=== PATIENT | male | born 1950 | race African-American/Black ===

== ENCOUNTER 2016-05-14 22:17 | Inpatient (IN) | payer BC ==
[~2016-05-14] VITALS: Ht 182.9 cm; Wt 102.0 kg
[2016-05-14] MEDS ORDERED: SODIUM CHLORIDE 0.9% 1L BAG IV* STA (22:48)
[2016-05-14] MEDS ORDERED: CEFTRIAXONE 1 GM/50 ML (PMX) 50 ML IVPB ONE (23:00)
[2016-05-14] MEDS ORDERED: IBUPROFEN 600 MG TAB PO ONE (23:00)
[2016-05-14] MEDS ORDERED: LISI10TA2 PO (23:07)
[2016-05-14] MEDS ORDERED: ALLO300T2 PO (23:07)
[2016-05-14] MEDS ORDERED: AMLO-147 PO (23:08)
[2016-05-14 23:12] LABS: ADD SCAN DIFF NO
[2016-05-14 23:15] LABS: BASOPHILS % 0.1 % (0.0-2.0); EOSINOPHILS # 0.1 10^3/ul (0.0-0.5); EOSINOPHILS % 0.6 % (0.0-7.0); HEMATOCRIT 39.5 % (42.0-52.0); HEMOGLOBIN 13.3 g/dl (14.0-18.0); LYMPHOCYTES # 1.3 10^3/ul (0.8-2.9); LYMPHOCYTES % 13.6 % (15.0-51.0); MEAN CORPUSCULAR HEMOGLOBIN 29.1 pg (29.0-33.0); MEAN CORPUSCULAR HGB CONC 33.7 g/dl (32.0-37.0); MEAN CORPUSCULAR VOLUME 86.4 fl (82.0-101.0); MONOCYTE # 0.7 10^3/ul (0.3-0.9); MONOCYTES % 7.2 % (0.0-11.0); NEUTROPHIL # 7.2 10^3/ul (1.6-7.5); NEUTROPHILS % 78.1 % (39.0-77.0); PLATELET COUNT 192 10^3/UL (140-415); RED BLOOD COUNT 4.57 10^6/ul (4.70-6.10); RED CELL DISTRIBUTION WIDTH 13.5 % (11.5-14.5); WHITE BLOOD COUNT 9.3 10^3/ul (4.8-10.8)
[2016-05-14 23:24] LABS: INR 1.02; PROTIME 13.4 Sec (12.2-14.2)
[2016-05-14 23:25] LABS: PARTIAL THROMBOPLASTIN TIME 26.9 Sec (25.0-35.0)
[2016-05-14 23:33] LABS: ALBUMIN 4.1 g/dl (3.3-4.9)
[2016-05-14 23:34] LABS: CHLORIDE 100 mmol/L (97-110); POTASSIUM 3.4 mmol/L (3.5-5.1); SODIUM 135 mmol/L (135-144)
[2016-05-14 23:36] LABS: ALBUMIN/GLOBULIN RATIO 0.91; ALKALINE PHOSPHATASE 147 IU/L (42-121); ANION GAP 16 (8-16); ASPARTATE AMINO TRANSFERASE 18 IU/L (15-46); BILIRUBIN,INDIRECT 0.3 mg/dl (0-1.1); BILIRUBIN,TOTAL 0.3 mg/dl (0.2-1.3); BLOOD UREA NITROGEN 20 mg/dl (7-20); CARBON DIOXIDE 22 mmol/L (21-31); CREATININE 1.63 mg/dl (0.61-1.24); TOTAL PROTEIN 8.6 g/dl (6.1-8.1)
[2016-05-14 23:37] LABS: ALANINE AMINOTRANSFERASE 24 IU/L (13-69); CALCIUM 9.5 mg/dl (8.4-10.2); GLUCOSE 322 mg/dl (70-220)
--- NOTE | 2016-05-14 23:42 | RADRPT ---
PROCEDURE: XR Chest. CLINICAL INDICATION: Possible sepsis. TECHNIQUE: Single frontal view of the chest was obtained COMPARISON: None FINDINGS: Cardiomegaly. Tortuous thoracic aorta. Hypoinflated lungs and portable technique accentuates pulmo nary vascular markings. Mild atelectasis versus airspace disease at the left lung base. There is no pleural effusion or pneumothorax. IMPRESSION: Mild atelectasis versus airspace disease at left lung base, and this may represent a small pneumonia in setting of possible sepsis. RPTAT: UU Physician Ronald Date Time Electronically viewed and signed by Physician Ronald on 05/14/2016 23:42 RS/
[2016-05-14 23:45] LABS: TROPONIN-I < 0.012 ng/ml (0.00-0.12)
[2016-05-15] VITALS (11 sets, daily range): BP systolic 124–162; BP diastolic 65–91; PULSE 93–114; RESP 18–20; TEMP 97.6; Ht 182.9 cm; Wt 102.0 kg
[2016-05-15 00:56] LABS: ADD UMIC YES; URINE BILIRUBIN (Dip) NEGATIVE (NEGATIVE); URINE BLOOD (Dip) 2+ (NEGATIVE); URINE COLOR LT. YELLOW (YELLOW); URINE GLUCOSE (Dip) >=1000 % (NEGATIVE); URINE KETONES (Dip) TRACE (NEGATIVE); URINE LEUKOCYTE ESTERASE (Dip) TRACE (NEGATIVE); URINE NITRITE (Dip) NEGATIVE (NEGATIVE); URINE TOTAL PROTEIN (Dip) TRACE (NEGATIVE); URINE UROBILINOGEN (Dip) 0.2 E.U./dL (0.1-1.0)
--- NOTE | 2016-05-15 00:59 | ERA ---
ER Documentation Chief Complaint Date/Time DATE: 05/15/16 TIME: 00:55 Chief Complaint syncope x 1minute in the bathroom and fell down1 hour ago HPI 66-year-old man brought in by for syncopal episode while in the bathroom taking a shower, episode was witnessed by , there was no seizure activity. Patient denies head or neck injury, denies chest pain or shortness of breath but states he has had a mild cough recently, no abdominal pain, no vomiting or diarrhea. Patient denies nasal congestion, rhinorrhea, or sore throat. Patient denies dysuria. ROS All systems reviewed and are negative except as per history of present illness. Medications Home Meds Reported Medications Amlodipine Besylate* (Amlodipine Besylate*) 10 Mg Tablet, 10 MG PO DAILY, #30 TAB 05/14/16 Allopurinol* (Allopurinol*) 300 Mg Tablet, 300 MG PO DAILY, TAB 05/14/16 Lisinopril* (Lisinopril*) 10 Mg Tablet, 10 MG PO DAILY, #30 TAB 05/14/16 Allergies Allergies: Coded Allergies: No Known Allergy (Unverified , 05/14/16) PMhx/Soc Hypertension Hx Alcohol Use: No Hx Substance Use: No Hx Tobacco Use: No Smoking Status: Never smoker FmHx Family History: No diabetes Physical Exam Vitals Vital Signs Date Time Temp Pulse Resp B/P Pulse Ox O2 Delivery O2 Flow Rate FiO2 05/15/16 00:13 99.0 101 18 146/89 100 Room Air 05/14/16 23:00 99.5 119 20 152/87 98 Room Air 05/14/16 22:20 101.8 120 182 98/100 100 Physical Exam GENERAL: Well-developed, well-nourished, febrile HEENT: Moist mucous membranes, pink conjunctiva, no cervical spine tenderness or step-off deformities, no goiter, no jaundice or icterus, extraocular movements intact without pain. No submandibular induration, and no pharyngeal erythema NEURO: Alert and oriented 3, cranial nerves II through XII intact bilaterally, pupils equal round reactive to light, no focal deficits or facial asymmetry, sensation intact distally Strength 5/5 in upper and lower extremities bilaterally CARDIAC: Tachycardic and regular, no murmurs rubs or gallops LUNGS: Clear bilaterally no wheezing crackles or stridor ABDOMEN: Soft nontender, no guarding, no rigidity, no rebound, no psoas sign no obturator sign. Normoactive bowel sounds SKIN: Warm and dry to touch, no abrasions, contusions, or hematomas, no lacerations, no ecchymosis, no target lesions, and without ulcers EXTREMITIES: No clubbing cyanosis or edema, calves are bilaterally symmetrical, no Homans sign, no popliteal cord sign. Distal pulses equal and bilateral PSYCH: Normal affect without agitation or irritability Result Diagram: 05/14/16224905/14/162249 Results 24 hrs Laboratory Tests Test 05/14/16 22:50 White Blood Count 9.310^3/ul Red Blood Count 4.5710^6/ul Hemoglobin 13.3g/dl Hematocrit 39.5% Mean Corpuscular Volume 86.4fl Mean Corpuscular Hemoglobin 29.1pg Mean Corpuscular Hemoglobin Concent 33.7g/dl Red Cell Distribution Width 13.5% Platelet Count 89891^3/UL Mean Platelet Volume 10.0fl Neutrophils % 78.1% Lymphocytes % 13.6% Monocytes % 7.2% Eosinophils % 0.6% Basophils % 0.1% Nucleated Red Blood Cells % 0.0/100WBC Neutrophils # 7.210^3/ul Lymphocytes # 1.310^3/ul Monocytes # 0.710^3/ul Eosinophils # 0.110^3/ul Basophils # 0.010^3/ul Nucleated Red Blood Cells # 0.010^3/ul Prothrombin Time 13.4Sec Prothrombin Time Ratio 1.0 INR International Normalized Ratio 1.02 Activated Partial Thromboplast Time 26.9Sec Sodium Level 135mmol/L Potassium Level 3.4mmol/L Chloride Level 100mmol/L Carbon Dioxide Level 22mmol/L Anion Gap 16 Blood Urea Nitrogen 20mg/dl Creatinine 1.63mg/dl Glucose Level 322mg/dl Lactic Acid Level 1.3mmol/L Calcium Level 9.5mg/dl Total Bilirubin 0.3mg/dl Direct Bilirubin 0.00mg/dl Indirect Bilirubin 0.3mg/dl Aspartate Amino Transf (AST/SGOT) 18IU/L Alanine Aminotransferase (ALT/SGPT) 24IU/L Alkaline Phosphatase 147IU/L Troponin I < 0.012ng/ml Total Protein 8.6g/dl Albumin 4.1g/dl Globulin 4.50g/dl Albumin/Globulin Ratio 0.91 Lipase 96U/L Current Medications Medications (Trade) Dose Ordered Sig/Sri Route PRN Reason Start Time Stop Time Status Last Admin Dose Admin Sodium Chloride (NS) 3,000 ml BOLUS OVER 2 HOURS STAT IV* 05/14/16 22:48 05/14/16 22:50 DC 05/14/16 23:06 Ibuprofen 600 mg 600 mg ONCE ONCE PO 05/14/16 23:00 05/14/16 23:01 DC 05/14/16 23:05 Ceftriaxone Sodium (Rocephin) 50 ml @ 100 mls/hr ONCE ONCE IVPB 05/14/16 23:00 05/14/16 23:29 DC 05/14/16 23:05 Procedures/MDM IV line was established patient was placed on butt welder rhythm strip revealed a sinus tachycardia at 120 bpm with upright P and T waves. Patient was febrile. Blood and urine cultures ordered results are pending I will follow -up. I administered about 3 L normal saline intravenously and ibuprofen 600 mg p.o. for fever. Patient was given ceftriaxone 1 g IV 1. EKG performed, read by me revealed a sinus tachycardia 117 bpm, left axis deviation, narrow QRS,, no concerning ST elevations or depressions noted. One view chest x-ray performed, read by me there is a left lower lobe infiltrate , no pneumothorax, no air under the diaphragm. CBC was unremarkable, electrolytes revealed hypokalemia 3.4 and dehydration with a BUN/creatinine of 20/1.6, blood sugar elevated at 322, liver function tests are normal, troponin was negative. Lactic acid was low at 1.3 no need to repeat. I also treated with azithromycin 500 mg IV 1. Patient will be admitted to telemetry setting for syncope and pneumonia. Departure Diagnosis: Primary Impression: Syncope Qualified Code: R55 - Syncope, unspecified syncope type Additional Impressions: Pneumonia Qualified Code: J18.1 - Pneumonia of left lower lobe due to infectious organism Dehydration Hypokalemia Condition: ALTHEA Leal MD May 15, 2016 00:59
[2016-05-15] MEDS ORDERED: AZITHROMYCIN 500MG/NS (PMX) 250 ML IVPB ONE (01:00)
[2016-05-15 01:17] LABS: BACTERIA,URINE MANY; MUCUS,URINE MODERATE
[2016-05-15] MEDS ORDERED: ACETAMINOPHEN 325 MG TAB PO PRN (07:00)
[2016-05-15] MEDS ORDERED: ONDANSETRON 4 MG INJ IV PRN (07:00)
[2016-05-15] MEDS: LEVOFLOXACIN 500MG/D5W (PMX) 100 ML IVPB SCH (08:42)
[2016-05-15] MEDS: ALLOPURINOL 300 MG TAB PO SCH (08:42)
[2016-05-15 08:43] LABS: CHOL/HDL RATIO 3.3 RATIO
[2016-05-15] MEDS: AMLODIPINE 10 MG TAB PO SCH (08:46)
[2016-05-15] MEDS: HEPARIN 5,000 UNIT/0.5 ML SYG SC SCH ×2 (08:55→21:16)
[2016-05-15] MEDS ORDERED: LISINOPRIL 10 MG TAB PO SCH (09:00)
[2016-05-15 09:12] LABS: THYROID STIMULATING HORMONE 1.04 MIU/L (0.465-4.680)
--- NOTE | 2016-05-15 11:37 | HP ---
Date/Time of Note Date/Time of Note DATE: 05/15/16 TIME: 11:29 Assessment/Plan VTE Prophylaxis VTE Prophylaxis Intervention: heparin Lines/Catheters IV Catheter Type (from Nrs): Saline Lock Assessment/Plan Assessment/Plan 1. Syncope: likely vasovegal - Cont tele monitoring - Obtain 2D-echo, trend trop - Will also order CT head and carotid doppler u/s 2. Sepsis 2/2 PNA - abx - f/u culture results 3. Presumed GAY - Will hydrate for now - Renal u/s and nephrology consult as needed - will holf ACEI if no improvement in am 4. Hyperglycemia - likely undiagnosed diabetes - will check A1c - insulin while in hospital 5. HTN Cont med with adjustment as needed 6. Hx of Gout - cont allopurinol HPI/ROS Admit Date/Time Admit Date/Time May 15, 2016 at 00:35 Hx of Present Illness Patient is a 6 yo male with hx of HTN and gout presented to ER after experiencing loss of consciousness that occurred while in shower. pt fell onto shower chair in shower, but denies hitting head. Per triage note, per family pt "looked like he was . His eyes were rolled back into his head." pt was a&o x4 in ER and walking with steady gait. He denied chest pain, palpitations, SOB or headache prior to syncopal episode. He did however c/o cough over last few days In ER, no arrythmia, first trop neg. No head CT was done. Initial Vital shows fever with a temp of 101.8 with HR of 120. . PMH/Family/Social Social History Smoking Status: Never smoker Exam/Review of Systems Vital Signs Vitals Vital Signs Date Time Temp Pulse Resp B/P Pulse Ox O2 Delivery O2 Flow Rate FiO2 05/15/16 08:07 97 05/15/16 07:55 98.2 18 124/65 97 05/15/16 06:00 Room Air Exam Constitutional: alert, oriented, well developed Head: atraumatic, normocephalic Eyes: EOMI, PERRL Respiratory: clear to auscultation, normal air movement Cardiovascular: nl pulses, regular rate and rhythm Gastrointestinal: non-tender, soft Extremities: normal pulses Neurological: nl mental status, nl speech, nl strength Labs Result Diagram: 4/1/17 2250 4/1/17 2250 Medications Medications Current Medications Levofloxacin/ Dextrose (Levaquin 500mg/ D5W 100 ml (Pmx)) 100 ml @ 100 mls/hr Q24H IVPB Last administered on 05/15/16 08:42; Admin Dose 100 MLS/HR; Start 05/15/16 at 07:00 Lisinopril (Zestril) 10 mg DAILY PO Last administered on 05/15/16 08:43; Admin Dose 10 MG; Start 05/15/16 at 09:00 Allopurinol (Zyloprim) 300 mg DAILY PO Last administered on 05/15/16 08:42; Admin Dose 300 MG; Start 05/15/16 at 09:00 Amlodipine Besylate (Norvasc) 10 mg DAILY PO Last administered on 05/15/16 08: 46; Admin Dose 10 MG; Start 05/15/16 at 09:00 Acetaminophen (Tylenol Tab) 650 mg Q6H PRN PO PAIN AND OR ELEVATED TEMP; Start 05/15/16 at 07:00 Ondansetron HCl (Zofran Inj) 4 mg Q6H PRN IV NAUSEA AND/OR VOMITING; Start 05/15 at 07:00 Heparin Sodium (Porcine) (Heparin (5000 Units/0.5 ml)) 5,000 unit BID SC Last administered on 05/15/16 08:55; Admin Dose 5,000 UNIT; Start 05/15/16 at 09:00 TRAN CERON MD May 15, 2016 11:37
[2016-05-15] MEDS ORDERED: GLUCOSE GEL 15 GRAM TUBE PO PRN ×2 (15:00)
[2016-05-15] MEDS ORDERED: DEXTROSE 50% 50 ML SYRINGE IV PRN ×2 (15:00)
[2016-05-15] MEDS ORDERED: GLUCOSE GEL 15 GRAM TUBE BUCCAL PRN (15:00)
[2016-05-15] MEDS ORDERED: GLUCAGON 1 MG INJ IM PRN (15:00)
[2016-05-15 17:21] LABS: ADD UMIC NO; URINE BILIRUBIN (Dip) NEGATIVE (NEGATIVE); URINE BLOOD (Dip) NEGATIVE (NEGATIVE); URINE COLOR LT. YELLOW (YELLOW); URINE GLUCOSE (Dip) >=1000 % (NEGATIVE); URINE KETONES (Dip) NEGATIVE (NEGATIVE); URINE LEUKOCYTE ESTERASE (Dip) NEGATIVE (NEGATIVE); URINE NITRITE (Dip) NEGATIVE (NEGATIVE); URINE TOTAL PROTEIN (Dip) NEGATIVE (NEGATIVE); URINE UROBILINOGEN (Dip) 0.2 E.U./dL (0.1-1.0)
[2016-05-15 17:58] LABS: PROTEIN URINE 10.8 mg/dl (0.0-9.9)
--- NOTE | 2016-05-15 18:04 | CONS ---
DATE OF ADMISSION: 05/15/2016 DATE OF CONSULTATION: 05/15/2016 TYPE OF CONSULTATION: Nephrology. REASON FOR CONSULTATION: Acute kidney injury, electrolyte abnormality. PHYSICIAN REQUESTING CONSULT: Dr. Dixon. HISTORY OF PRESENT ILLNESS: This is a 66-year-old male with a past medical history of hypertension, history of gout, history of diabetes who presents to [facility] after having a sy ncopal episode. The patient apparently this morning had experienced loss of consciousness while in the shower. The patient's family called 911 and EMS service brought patient to the emergency room. Upon arrival, the patient had a fever of 101.8. The patient denied hitting his head. In the emerg ency room, chest x-ray was obtained which showed atelectasis versus airspace disease in the left melisa g base. In the emergency room, the patient was given IV fluids, started on empiric antibiotics and admitted to telemetry for further evaluation. In terms of the patient's renal history, the patient denies any prior history of kidney disease. On admission, the patient had a creatinine of 1.63 mg/dL. The patient denied any episodes of hemoptys is, hematemesis, any rashes, any frothy urine, any hematochezia. PAST MEDICAL HISTORY: As stated above, history of hypertension, history of gout. PAST SURGICAL HISTORY: None. ALLERGIES: NO KNOWN DRUG ALLERGIES. FAMILY HISTORY: Noncontributory. SOCIAL HISTORY: Does not drink, smoke or do drugs. MEDICATIONS: The patient's medications have been reviewed. REVIEW OF SYSTEMS: A 14-point review of systems was conducted. Pertinent positives stated in HPI, otherwise negative. PHYSICAL EXAMINATION: VITAL SIGNS: Blood pressures 162/91, pulse 108, respiration is 18, temperature 98.8. HEENT: Head is normocephalic. Pupils are reactive to light. NECK: Supple. HEART: Regular rate. LUNGS: Show diminished breath sounds at base. ABDOMEN: Soft, nontender to palpation. No rebound or guarding. EXTREMITIES: Negative for clubbing, cyanosis, no edema. DERMATOLOGIC: No rashes. MUSCULOSKELETAL: No joint effusions. NEUROLOGIC: No change in exam. MEDICATIONS: The patient's medications have been reviewed. LABORATORY DATA: Shows a sodium of 135, potassium 2.4, chloride 100, BUN is 20, creatinine 1.60, gl ucose 322. White count 9.3, hemoglobin 13.3, hematocrit 39.5, platelet count 192. The patient's he moglobin A1c is 12.8. Urinalysis shows WBC clumps and RBCs 5 to 10, greater than 1000 glucose. ASSESSMENT AND PLAN: This is a 66-year-old male who presents with: 1. Nonoliguric acute kidney injury with unknown baseline creatinine. Etiology of current acute kid josie injury is unclear, possibly hemodynamic versus MARGARET inhibitor effect versus questionable AIN. Th e patient's urinalysis does show WBC clumps, questionable casts, which can be seen in interstitial n ephritis. Underlying etiology is not clear. Plan at this point is to check urine eosinophils, will repeat urinalysis. Will check urine electrolytes. We will check renal ultrasound to evaluate shavon l parenchyma. Would continue current treatment plan. Continue IV hydration. Continue supportive c are, renally dose meds will hold MARGARET inhibitor in the setting of acute kidney injury. Monitor renal function closely. 2. Hypokalemia, replete potassium chloride. 3. Mineral bone disorder. Monitor calcium, phosphorus levels. No need for phosphate binders. 4. Hypertension. Continue current blood pressure regimen. Will hold MARGARET inhibitor. 5. Syncope. Etiology is possibly vasovagal, continue to monitor. Workup ongoing, check 2D echo, c arotid duplex ultrasound. 6. Sepsis secondary to pneumonia. Questionable possible urinary tract infection. Continue current antibiotic regimen. 7. History of gout. Patient will continue allopurinol. Thank you, Dr. Cuevas, for this interesting consultation. It will be a pleasure to follow patient juan pablo delacruz christian throughout the hospital course. Dictated By: GARY KERNS/CHRISTIE Conf#: [id number] DID#: [id number]
[2016-05-15] MEDS ORDERED: INSULIN GLARGINE [LANtus] 3 ML PEN SC SCH (20:00)
[2016-05-15] MEDS ORDERED: LATANOPROST 0.005% 2.5 ML OPH BOTH EYES SCH (21:00)
[2016-05-15] MEDS: INSULIN ASPART [NOVOLOG] 3 ML PEN SC SCH ×2 (21:00→21:16)
[2016-05-15] MEDS: DORZOLAMIDE/TIMOLOL 10 ML OPH BOTH EYES SCH (21:04)
[2016-05-16] VITALS (9 sets, daily range): BP systolic 131–148; BP diastolic 77–97; PULSE 88–117; RESP 18
[2016-05-16] MEDS ORDERED: ACCU-CHEK XX SCH (02:00)
[2016-05-16] MEDS: LEVOFLOXACIN 500MG/D5W (PMX) 100 ML IVPB SCH (06:25)
--- NOTE | 2016-05-16 06:55 | RADRPT ---
PROCEDURE: CT Brain without contrast. CLINICAL INDICATION: syncope TECHNIQUE: CT scan of the brain was performed on a multidetector high-resolution CT scan. Axial im aging was obtained of the brain without contrast administration. Coronal and sagittal reformatted i mages were obtained from the axial source images. Standard CT scan of the head without contrast prot ocols were performed. The total exam CTDI equals 44.03 mGy and the total exam DLP equals 720.03 mGy-cm. One or more of the following dose reduction techniques were used: - Automated exposure control. - Adjustment of the mA and/or kV according to patient size. Use of iterative reconstruction technique. COMPARISON: None. FINDINGS: The ventricular system is normal in size without midline shift. There is symmetrical mild prominenc e of the peripheral frontal CSF spaces consistent with mild symmetrical frontal cerebral volume loss . Negative for intracranial masses hemorrhages or midline shift. There is mild atherosclerotic hear t plaque involving the cavernous internal carotid arteries and distal vertebral arteries. The bones and calvarium are intact. The paranasal sinuses visualized are unremarkable. The mastoids are unr emarkable. That there are numerous punctate normal radiodensities along the right left frontal scal p and superior face that may represent foreign bodies and recommend clinical correlation. IMPRESSION: 1. Bilateral symmetrical frontal volume loss. 2. Negative for intracranial masses hemorrhages or midline shift. RPTAT:AAJJ Physician Michael Date Time Electronically viewed and signed by Physician Michael on 05/16/2016 06:55 BM/
[2016-05-16 07:33] LABS: ADD SCAN DIFF NO
[2016-05-16 07:35] LABS: BASOPHILS % 0.3 % (0.0-2.0); EOSINOPHILS # 0.1 10^3/ul (0.0-0.5); EOSINOPHILS % 0.8 % (0.0-7.0); HEMATOCRIT 41.7 % (42.0-52.0); HEMOGLOBIN 13.3 g/dl (14.0-18.0); LYMPHOCYTES # 1.9 10^3/ul (0.8-2.9); LYMPHOCYTES % 30.1 % (15.0-51.0); MEAN CORPUSCULAR HEMOGLOBIN 28.5 pg (29.0-33.0); MEAN CORPUSCULAR HGB CONC 31.9 g/dl (32.0-37.0); MEAN CORPUSCULAR VOLUME 89.5 fl (82.0-101.0); MEAN PLATELET VOLUME 10.8 fl (7.4-10.4); MONOCYTE # 0.7 10^3/ul (0.3-0.9); NEUTROPHIL # 3.6 10^3/ul (1.6-7.5); NEUTROPHILS % 57.6 % (39.0-77.0); PLATELET COUNT 165 10^3/UL (140-415); RED BLOOD COUNT 4.66 10^6/ul (4.70-6.10); WHITE BLOOD COUNT 6.2 10^3/ul (4.8-10.8)
[2016-05-16 07:50] LABS: POTASSIUM 3.4 mmol/L (3.5-5.1)
[2016-05-16 07:53] LABS: CREATININE 1.31 mg/dl (0.61-1.24)
[2016-05-16 07:54] LABS: CALCIUM 9.1 mg/dl (8.4-10.2)
[2016-05-16] MEDS: INSULIN ASPART [NOVOLOG] 3 ML PEN SC SCH ×6 (08:00→17:22)
[2016-05-16] MEDS: AMLODIPINE 10 MG TAB PO SCH (08:47)
[2016-05-16] MEDS: DORZOLAMIDE/TIMOLOL 10 ML OPH BOTH EYES SCH (08:50)
[2016-05-16] MEDS: HEPARIN 5,000 UNIT/0.5 ML SYG SC SCH (08:53)
[2016-05-16] MEDS: ALLOPURINOL 300 MG TAB PO SCH (08:56)
[2016-05-16] MEDS ORDERED: POTASSIUM CHLORIDE (SR) 20 MEQ TAB PO STA (09:12)
--- NOTE | 2016-05-16 09:37 | RADRPT ---
PROCEDURE: Renal US. CLINICAL INDICATION: Acute kidney injury. TECHNIQUE: Multiple sonographic images of the kidneys and urinary bladder were obtained. The imag es were reviewed on a PACS workstation. COMPARISON: No prior studies are available for comparison. FINDINGS: The right kidney measures 11.6 cm. The left kidney measures 11.8 cm. There is no solid renal mass. There is a benign cyst in the mid right kidney measuring 0.9 cm. There is no hydronephrosis. There is no renal calculus. Renal parenchymal thickness is normal. Both kidneys are hyperechoic consistent with medical renal d isease. The perirenal regions are normal with no fluid collection or mass. The urinary bladder is unremarkable. IMPRESSION: 1. Small benign right renal cyst. 2. Bilateral hyperechoic kidneys consistent with medical renal disease. 3. No hydronephrosis. RPTAT: QQ .Cabrera Camacho MD, Date Time Electronically viewed and signed by .Cabrera Camacho MD, MD on 05/16/2016 09:36 .R/
--- NOTE | 2016-05-16 11:34 | PN ---
DATE: 05/16/2016 SUBJECTIVE: The patient has been stable, no acute events overnight. No fevers, chills, nausea, vom iting. OBJECTIVE: VITAL SIGNS: Blood pressure is 134/78, respirations 18, pulse 104, temperature 98.1. HEENT: Head is normocephalic. NECK: Supple. HEART: Regular rate. LUNGS: Show diminished breath sounds at the base. ABDOMEN: Soft, nontender to palpation without rebound or guarding. EXTREMITIES: Negative for clubbing, cyanosis, no edema. DERMATOLOGIC: No rashes. MUSCULOSKELETAL: No joint effusions. NEUROLOGIC: No change in exam. MEDICATIONS: Reviewed. LABORATORY DATA: Shows a urine protein creatinine ratio approximately 500 mg creatinine. Urine eos inophils 1%. Sodium 140, potassium 3.4, BUN 13, creatinine 1.34. White count 6.2, hemoglobin 13.3, hematocrit 41.7, platelet count 165. ASSESSMENT AND PLAN: 1. Nonoliguric acute kidney injury with unknown baseline creatinine. Etiology of acute kidney inju ry appears to be secondary to hemodynamics, MARGARET inhibitor effect, questionable AIN. The patient's u rinalysis did show WBC clumps, questionable cast which possibly could be seen in interstitial nephri tis and/or urinary infection. The patient's renal function has improved with supportive care. Tootie ent's urine eosinophils were checked and reviewed. At this point, would continue current treatment plan, supportive care, renally dose all medications, continue to hold MARGARET inhibitor, monitor renal f unction closely. 2. Hyperkalemia, will replete potassium chloride. 3. Mineral bone disorder. Continue to monitor calcium and phosphorus levels. No need for phosphat e binders. 4. Hypertension. Continue current blood pressure regimen. 5. Syncope, etiology is likely vasovagal or sepsis. Continue current antibiotic regimen. 6. Sepsis secondary to pneumonia. Continue current antibiotic course. Cultures have been reviewed . 7. History of gout. Continue allopurinol. Dictated By: GARY KERNS/CHRISTIE Conf#: [id number] DID#: [id number]
--- NOTE | 2016-05-16 14:54 | RADRPT ---
Echocardiogram Report Patient Name: ZULEYKA VALDEZ Gender: Male Date: 1950 Study Date: 16-May-2016 Mounter Clarinets: Renae Reynoso [facility] Location: 5551 Ref. Physician: TRAN CERON Quality: Good Procedures: Transthoracic echocardiogram with complete 2D, M-Mode, and doppler examination. Indications: Syncope. 2D/M Mode Doppler Measurement Value Normal Ranges Measurement Value Normal Ranges LVIDd 2D 3.8 3.5 - 5.6 cm AV Peak Endy 1.2 m/sec LVIDs 2D 2.4 2.1 - 4.1 cm AV Peak PG 5.4 mmHg LVPWd 2D 1.1 0.6 - 1.1 cm LVOT Peak Endy 0.9 m/sec IVSd 2D 1.4 0.6 - 1.1 cm LVOT Peak PG 3.3 mmHg AoR Diam 2D 3.2 2.0 - 3.7 cm MV E Peak Endy 0.7 m/sec EDV 2D 60.6 cm3 MV A Peak Endy 1.1 m/sec ESV 2D 14.1 cm3 MV E/A 0.7 LA Dimen 2D 3.0 2.3 - 4.0 cm MV Decel Time 191 msec MV Decel Thomas 4 MV E/A 0.7 Findings Left Ventricle: Normal left ventricular systolic function. Normal left ventricular cavity size. Mild hypertrophy of the basal septum. Ejection fraction is visually estimated at 65 %. Tissue Doppler/Mitral Doppler indices are consistent with impaired relaxation (Stage I diastolic dysfunction). Right Ventricle: Normal right ventricular size. Normal right ventricular systolic function. Left Atrium: The left atrium is normal in size. Right Atrium: The right atrium is normal in size. Mitral Valve: Normal appearance and function of the mitral valve with trace physiologic regurgitation. Aortic Valve: No significant aortic stenosis or insufficiency. Aortic cusps appear mildly calcified. Tricuspid Valve: Normal appearance and function of the tricuspid valve with trace physiologic regurgitation. Normal right ventricular systolic pressure. Pulmonic Valve: Normal pulmonic valve appearance. Pericardium: Normal pericardium with no significant pericardial effusion. Aorta: Normal aortic root. IVC: Dilated IVC with respiratory collapse consistent with elevated right atrial pressure. Conclusions 1.The left ventricle is normal in size and systolic function. 2.Estimated left ventricular ejection fraction of 65-70%. 3.Mild basal septal hypertrophy. Mild left ventricular diastolic dysfunction. Electronically Signed By: Ronal Crawford 16-May-2016 14:53:15 -0700 Patient Name: ZULEYKA VALDEZ Study Date: 16-May-[id number]
--- NOTE | 2016-05-16 16:31 | PDOCDIS ---
Discharge Instructions DIAGNOSIS Discharge Diagnosis: TYPE 2 DIABETES MELLITUS. ACUTE KIDNEY INJURY. CONDITION Patient Condition: Stable HOME CARE INSTRUCTIONS: Special Diet: carbohydrate controlled OTHER ORDERS: Other Orders: 1. Take a controlled diet. 2. Follow-up with your primary care physician in one week. 3. Check blood sugars 3 times a day. 4. Resume activities as tolerated. 5. Resume home medications except lisinopril until your kidney function is normalized. ZOHAIB DRUMMOND NP May 16, 2016 16:31
[2016-05-16] MEDS ORDERED: LEVO750T8 PO (16:34)
[2016-05-16] MEDS ORDERED: LINA5TAB PO (16:34)
[2016-05-16] MEDS ORDERED: LANT3I SC (16:34)
[2016-05-16] MEDS ORDERED: NOVO3I SC (16:34)
[2016-05-16] MEDS ORDERED: INSULIN ASPART [NOVOLOG] 3 ML PEN SC SCH (18:05)
--- NOTE | 2016-05-16 19:01 | DS ---
DATE OF ADMISSION: 05/15/2016 DATE OF DISCHARGE: 05/16/2016 FINAL DIAGNOSES: 1. Acute nonoliguric kidney injury with unknown baseline creatinine. 2. Essential hypertension. 3. Type 2 diabetes mellitus, new onset versus newly diagnosed. 4. Obesity. 5. Sepsis secondary to urinary tract infection. 6. Gout. CONSULTATIONS: Dr. Av Albright, nephrology. HOSPITAL COURSE: This is a 66-year-olf -[place] male with past medical history of essential hypertension and gout. He was brought to the emergency room after the patient had apparent loss of consciousness while he was in the shower. There was no reported injury to the head. There was no witnessed seizures. The patient was awake, alert and oriented x4 in the emergency room. The patient had no problems with gait in the emergency room. He denied any chest pain, palpitations, dyspnea or headache prior to the syncopal episode. However, the patient was having a cough and fever for the past few days. The patient was noticed to have a temperature of 101.8 in the emergency room. Provided the patient's history of present illness and his comorbidities, a clinical decision was made to admit the patient to inpatient setting to have him further evaluated. The patient's workup also showed a creatinine of 1.63 and glucose of 322. The patient was admitted to inpatient telemetry floor. A nephrology consult was obtained. The patient underwent a brain imaging study that did not show any evidence of any acute intracranial findings. The patient had no evidence of any arrhythmias. The patient's 2D echocardiogram showed ejection fraction of 65% to 70% with mild left ventricular diastolic dysfunction. The patient has underlying essential hypertension. The patient was started on antihypertensives. However, the patient's MARGARET inhibitors were put on hold because of worsening renal function. The etiology of the patient's fall was most probably from underlying sepsis versus a hypoglycemic event resulting in hyperglycemic coma but this is very unlikely. The patient was also started on empiric antibiotics for any possible underlying community-acquired pneumonia since the patient's chest x-ray showed mild atelectasis versus airspace disease at the left lung base. The patient's urine culture showed positive gram- negative rods with a colony count greater than 100,000. The patient had no evidence of any septic shock or lactic acidosis. Meanwhile, the patient's renal function was improving gradually with hydration and holding the nephrotoxic medications. The etiology of the patient's acute kidney injury, remains unclear. The acute kidney injury could be probably secondary to hemodynamics versus MARGARET inhibitors. Acute kidney injury could also be from acute interstitial nephritis. The patient has history of gout. The patient was maintained on allopurinol for the same. The patient was noticed to have a very high blood glucose in the emergency room. The patient's hemoglobin A1c was found to be 12.8. The patient denied any prior history of diabetes. However, the patient has a family history of diabetes. Hence, the patient was started on sliding scale insulin and premeal insulin. The patient was also started on dipeptidyl peptidase-4 inhibitors. The patient is not an ideal candidate for metformin because of borderline renal function. A diabetes education consult was obtained. However, the tobacco educator was not available. The patient did not want to wait for the nursing educator. Rather , the patient insisted on going home. 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 Hence, the patient verbalized that he is going to do insulin injections and blood sugar checks. The patient also promised that he will be following up with his primary care physician at the earliest. The patient had a stable hospital course. The patient is stable to be discharged home. The patient was cleared by nephrology to be discharged home. DISCHARGE DISPOSITION/PLAN: Patient will be discharged home today. The patient was instructed to take a carbohydrate controlled diet. He was instructed to resume his home medications, but to avoid Lisinopril until his kidney function is normalized. He was instructed to follow up with his primary care physician in 1 week. He was instructed to check his blood sugars 3 times a day. He was instructed to resume activities as tolerated. The patient verbalized understanding of his discharge instructions. CONDITION AT DISCHARGE: Stable. DISCHARGE MEDICATIONS: 1. NovoLog insulin 4 units subcutaneously with meals. 2. Lantus insulin 12 units subcutaneously daily. 3. Levaquin 750 mg p.o. q.48h. x5 tablet. 4. Tradjenta 5 mg p.o. daily. 5. Allopurinol 300 mg p.o. b.i.d. 6. Amlodipine 10 mg p.o. daily. The patient was also given prescription for glucometer including supplies for glucometer. PERTINENT LABORATORY AND DIAGNOSTIC DATA: 1. 2D echocardiogram. The left ventricle was normal in size and systolic function. Estimated left ventricular ejection fraction of 65% to 70%. Mild basal septal hypertrophy. Mild left ventricular diastolic dysfunction. 2. Chest x-ray upon admission. Mild atelectasis versus airspace disease at the left lung base and this may represent a small pneumonia in the setting of possible sepsis. 3. Brain CT scan. Mild bilateral symmetrical frontal volume loss. Negative for intracranial masses, hemorrhages or midline shift. 4. Renal ultrasound. Small benign right renal cyst. Bilateral hyperechoic kidneys consistent with medical renal disease. No hydronephrosis. 5. Latest CBC: WBC 6.2, hemoglobin 13.3, hematocrit 41.7, platelet count 155. 6. Latest BMP: Sodium 140, potassium 3.4, chloride 103, carbon dioxide 20, anion gap 17, BUN 13, creatinine 1.2, glucose 241, calcium 9.13. 7. Blood culture x2. Negative. 8. Urine culture. Positive for gram-negative rods. At this time, I would like to thank Dr. Albright for seeing the patient and providing clinical recommendations. The case and management of this patient was fully discussed with Dr. Tripp. Approximately 40 minutes was spent on coordinating discharge on this patient. ZOHAIB TRIPP MD, AM/CHRISTIE Conf#: [id number] DID#: [id number]
[2016-05-16] MEDS ORDERED: INSULIN GLARGINE [LANtus] 3 ML PEN SC SCH (20:00)
[2016-05-17] MEDS ORDERED: LINAGLIPTIN 5 MG TABLET PO SCH (09:00)
[2016-05-17 14:35] LABS: MICROALBUMIN 3.9 mg/dL
== END 2016-05-16 17:25 | disposition home or self-care (01) | DRG 871 ==
LOC: E/R 22:17 → MS4 05-15 00:35
PROVIDERS: ADMIT Internal Medicine; ATTEND Internal Medicine
DX: A41.9 Sepsis, unspecified organism (principal); J18.9 Pneumonia, unspecified organism; N39.0 Urinary tract infection, site not specified; I10 Essential (primary) hypertension; E66.9 Obesity, unspecified; Z68.30 Body mass index [BMI] 30.0-30.9, adult; E11.65 Type 2 diabetes mellitus with hyperglycemia; E87.6 Hypokalemia; E83.89 Other disorders of mineral metabolism; R55 Syncope and collapse
CPT/HCPCS: 36415; 70450; 71010; 76775; 80048; 80053; 80061; 81001; 81003; 82043; 82962; 83036; 83605; 83690; 84155; 84300; 84443; 84484; 85025; 85610; 85730; 87040; 87086; 89190; 93005; 93306; 96374; 96375; J0456; J0696; J1644; J1815; J1956; J7030